=== PATIENT | male | born 1990 | race Caucasian/White ===

== ENCOUNTER 2017-12-26 17:40 | Emergency (ER) | payer BC, OTHER ==
[~2017-12-26] VITALS: Ht 177.8 cm; Wt 89.9 kg
[2017-12-26 18:29] LABS: BASOPHILS # (AUTO) 0.04 x10^3/uL (0-0.1); BASOPHILS % (AUTO) 0 % (0-1); EOSINOPHILS # (AUTO) 0.23 x10^3/uL (0-0.4); EOSINOPHILS % (AUTO) 2 % (1-7); LYMPHOCYTES # (AUTO) 2.71 x10^3/uL (1-3.4); LYMPHOCYTES % (AUTO) 24 % (22-44); MD NO; MEAN CORPUSCULAR HEMOGLOBIN 30.3 pg (27.5-34.5); MEAN CORPUSCULAR HGB CONC 34.3 g/dL (33.2-36.2); MEAN CORPUSCULAR VOLUME 88.4 fL (81-97); MEAN PLATELET VOLUME 7.9 fL (7.4-10.4); MONOCYTES % (AUTO) 5 % (2-9); NEUTROPHILS # (AUTO) 7.92 x10^3/uL (1.8-6.8); NEUTROPHILS % (AUTO) 69 % (42-75); PLATELET COUNT 257 x10^3/uL (130-400); RED BLOOD COUNT 5.54 x10^6/uL (4.38-5.82); RED CELL DISTRIBUTION WIDTH 13.1 % (9.4-14.8)
[2017-12-26 18:37] LABS: ALANINE AMINOTRANSFERASE 51 U/L (12-78); ALBUMIN 4.2 g/dL (3.4-5.0); ANION GAP 6 mmol/L (5-15); CALCIUM 8.3 mg/dL (8.5-10.1); CHLORIDE 110 mmol/L (98-107); CREATININE 1.26 mg/dL (0.7-1.3); SALICYLATE LEVEL 2.9 mg/dL (2.8-20.0)
[2017-12-26 18:39] LABS: ALKALINE PHOSPHATASE 54 U/L (45-117); BILIRUBIN,TOTAL 0.4 mg/dL (0.2-1.0); TOTAL PROTEIN 7.3 g/dL (6.4-8.2)
[2017-12-26 18:40] LABS: ACETAMINOPHEN < 2 mcg/mL (10-30)
[2017-12-26 19:16] LABS: MICROSCOPIC NOT IND
[2017-12-26] MEDS ORDERED: ARIP15TA3 PO (19:28)
[2017-12-26] MEDS ORDERED: BENZ1TAB61 PO (19:28)
[2017-12-26] MEDS ORDERED: OXCA300T PO (19:28)
[2017-12-26 19:32] LABS: CULTURE INDICATED? NO
[2017-12-26 19:35] LABS: AMPHETAMINE SCREEN, URINE Negative (Negative); BARBITURATE SCREEN, URINE Negative (Negative); BENZODIAZEPINE SCREEN, URINE Negative (Negative); CANNABINOID SCREEN, URINE Positive (Negative); COCAINE SCREEN, URINE Negative (Negative); METHADONE SCREEN, URINE Negative (Negative); OPIATE SCREEN, URINE Negative (Negative)
[2017-12-26] MEDS ORDERED: ARIPIPRAZOLE 15 MG TABLET ONE (20:56)
[2017-12-26] MEDS ORDERED: ARIPIPRAZOLE 15 MG TABLET PO ONE (21:00)
[2017-12-26 21:07] VITALS: BP 116/65
== END 2017-12-26 21:09 | disposition home or self-care (01) ==
LOC: ED 18:00
DX: F39 Unspecified mood [affective] disorder (principal); F20.9 Schizophrenia, unspecified; F31.9 Bipolar disorder, unspecified; Z87.891 Personal history of nicotine dependence; Z79.899 Other long term (current) drug therapy
CPT/HCPCS: 36415; 80053; 80307; 80329; 81003; 85025; 99284; G0480